=== PATIENT | female | born 1960 | race Caucasian/White ===

== ENCOUNTER → 2017-11-08 | Outpatient (CLI) | payer OTHER ==
--- NOTE | 2017-11-09 10:22 | RADIOLOGY REPORT (SQ) ---
EXAM DESCRIPTION: MRI LT UPPER JOINT WITHOUT COMPLETED DATE/TIME: 11/08/2017 7:52 pm REASON FOR STUDY: PAIN IN LEFT SHOULDER, PAIN IN RIGHT SHOULDER M25.512 PAIN IN LEFT SHOULDER M25.5 11 PAIN IN RIGHT SHOULDER COMPARISON: None. TECHNIQUE: Left shoulder images acquired and stored on PACS. Multiplanar imaging to include fat sens itive sequences such as T1, water sensitive sequences such as FST2/STIR, cartilage sensitive sequence s such as FSPD/gradient-echo sequences. LIMITATIONS: None. FINDINGS: BONE MARROW AND CORTEX: Small subcortical cyst posterior left humeral head at the greater tuberosity on coronal image 14 and sagittal image 6. No marrow signal abnormalities worrisome for oc cult fracture or aggressive marrow replacement process JOINT OR BURSAL EFFUSION: No significant joint or bursal fluid. No suggestion of loose bodies. GLENO-HUMERAL ARTICULATION: There is minimal bony irregularity of the anterior inferior glenoid with bony spurring and small labral tear without paralabral cyst. This is best shown on axial gradient ec ho images 8-11. No dislocation. No high-grade glenohumeral joint chondromalacia ACROMION AND AC JOINT: Type 2 acromion with postsurgical changes, partial resection of the acromion and distal clavicle with minimal ferromagnetic artifact. ROTATOR CUFF AND INTERVAL: There is high signal in the distal teres minor tendon, and high signal in the teres minor muscle at the musculotendinous junction, best shown on sagittal images 4-8, axial cade ge 10, and coronal image 14. Remainder of the rotator cuff is intact. No rotator interval tear. No rotator interval thickening to suggest adhesive capsulitis. LABRUM AND BICEPS LABRAL COMPLEX: Intra-articular long head biceps tendinopathy with thickening and high signal on sagittal images 8-11. There is high signal at its labral attachment, with a small fam perior labral tear on axial images 5-8. REMAINDER OF LABRUM AND IGHL : No gross tear or paralabral cyst formation. Labral evaluation is less than optimal without joint distention. No thickening of IGHL to suggest adhesive capsulitis. PERIARTICULAR AND ADJACENT SOFT TISSUES: No masses or abnormal nodes. OTHER: No other significant finding. IMPRESSION: All postoperative change at the acromioclavicular joint Teres minor tendinopathy and edema at the musculotendinous junction Intra-articular long head biceps tendinopathy with tiny superior labral tear Bony spurring and labral irregularity along the anterior inferior labrum, without paralabral cyst TECHNICAL DOCUMENTATION: JOB ID: [id number] [employer]- All Rights Reserved
--- NOTE | 2017-11-09 10:37 | RADIOLOGY REPORT (SQ) ---
EXAM DESCRIPTION: MRI RT UPPER JOINT WITHOUT COMPLETED DATE/TIME: 11/08/2017 7:52 pm REASON FOR STUDY: PAIN IN LEFT SHOULDER, PAIN IN RIGHT SHOULDER M25.512 PAIN IN LEFT SHOULDER M25.5 11 PAIN IN RIGHT SHOULDER COMPARISON: None. TECHNIQUE: Right shoulder images acquired and stored on PACS. Multiplanar imaging to include fat sen sitive sequences such as T1, water sensitive sequences such as FST2/STIR, cartilage sensitive sequenc es such as FSPD/gradient-echo sequences. LIMITATIONS: None. FINDINGS: BONE MARROW AND CORTEX: Small subcortical cyst posterior right humeral head greater tubero sity. No marrow signal abnormalities worrisome for occult fracture. No marrow signal abnormalities worrisome for aggressive marrow replacement process JOINT OR BURSAL EFFUSION: Trace fluid in the subacromial/subdeltoid bursa. No significant glenohumer al joint effusion GLENO-HUMERAL ARTICULATION: Normal articulation. No subluxation. No cystic change. No osteophytes or cartilage loss. ACROMION AND AC JOINT: Type 2 acromion with minimal AC joint bony spurring and minimal bony spurring along the undersurface of the acromion on coronal images 9-12. ROTATOR CUFF AND INTERVAL: There is high signal along the superficial aspect of the supraspinatus ten don, and a small partial thickness tear along anterior edge at the greater tuberosity, best shown on coronal image 11 and sagittal image 4. Remainder of the rotator cuff is intact. No rotator interval tear. No rotator interval thickening to suggest adhesive capsulitis. LABRUM AND BICEPS LABRAL COMPLEX: Intra-articular long head biceps tendinopathy with increased sign al. There is abnormal signal in the posterosuperior labrum 1 axial images 6 through 8, and in the an terior labrum on image 9, worrisome for superior labral tear. No paralabral cysts. REMAINDER OF LABRUM AND IGHL : No gross tear or paralabral cyst formation. Labral evaluation is less than optimal without joint distention. No thickening of IGHL to suggest adhesive capsulitis. PERIARTICULAR AND ADJACENT SOFT TISSUES: No masses or abnormal nodes. OTHER: No other significant finding. IMPRESSION: Tendinopathy supraspinatus tendon, with tiny partial thickness tear anterior edge Intra-articular long head biceps tendinopathy with findings worrisome for superior labral tear TECHNICAL DOCUMENTATION: JOB ID: [id number] [employer]- All Rights Reserved
== END ==
LOC: RAD 18:32
PROVIDERS: ATTEND Orthopaedic Surgery
DX: M25.512 Pain in left shoulder (principal); M25.511 Pain in right shoulder